=== PATIENT | male | born 1955 | race Two or more races ===

== ENCOUNTER 2024-12-11 06:37 | Day surgery (SDC) | payer OTHER ==
[~2024-12-11] VITALS: Ht 180.3 cm; Wt 99.1 kg
[~2024-12-11 06:37] MED LIST: SODIUM CHLORIDE 0.9% 1,000 ML ONE
[2024-12-11] MEDS: SODIUM CHLORIDE 0.9% 1,000 ML IV ONE (07:49)
[2024-12-11] MEDS ORDERED: PRED-729 PO (08:00)
[2024-12-11] MEDS ORDERED: MONT-40 PO (08:00)
[2024-12-11] MEDS ORDERED: LORA10TA7 PO (08:00)
[2024-12-11] MEDS ORDERED: SIMV-46 PO (08:00)
[2024-12-11] MEDS ORDERED: METF-1211 PO (08:00)
[2024-12-11] MEDS ORDERED: ASPI-1444 PO (08:00)
[2024-12-11] MEDS ORDERED: FAMO40TA7 PO (08:00)
[2024-12-11] MEDS ORDERED: LISI2.5T13 PO (08:00)
[2024-12-11] MEDS ORDERED: LEVO-72 PO (08:00)
[2024-12-11 08:11] LABS: GLUCOMETER DEV NAME(LOC) SDS.; GLUCOSE,POINT OF CARE 126 MG/DL (70-110)
[2024-12-11] MEDS ORDERED: FentaNYL CITRATE PF 100 MCG/2 ML VIAL ONE (08:20)
[2024-12-11] MEDS ORDERED: MIDAZOLAM HCL 2 MG/2 ML VIAL ONE (08:20)
[2024-12-11 09:28] VITALS: PULSE 56; RESP 20; O2SAT 99
[2024-12-11] MEDS ORDERED: MethylPREDNISolone SOD SUCC 125 MG/2 ML VIAL ONE (10:03)
[2024-12-11] MEDS: MethylPREDNISolone SOD SUCC 125 MG/2 ML VIAL IVP ONE (10:12)
[2024-12-11] MEDS ORDERED: LIDOCAINE 4% 50 ML SOLUTION ONE (12:00)
[2024-12-11] MEDS ORDERED: ALBUTEROL SULFATE 2.5 MG/0.5 ML NEB SOLUTION NEB ONE (12:00)
[2024-12-11] MEDS ORDERED: LIDOCAINE 2% 11 ML JELLY ONE (12:00)
[2024-12-11] MEDS ORDERED: BENZOCAINE 20% 50 MCG/SPRAY 57 GM ONE (12:00)
== END 2024-12-11 12:50 | disposition home or self-care (01) ==
LOC: SURGERY 06:37
PROVIDERS: ATTEND Internal Medicine Critical Care Medicine
DX: J38.4 Edema of larynx (principal); B37.0 Candidal stomatitis; I10 Essential (primary) hypertension; Z98.890 Other specified postprocedural states; E11.9 Type 2 diabetes mellitus without complications; Z79.82 Long term (current) use of aspirin; Z79.899 Other long term (current) drug therapy
CPT/HCPCS: 31623; 82962; 87206; 87101; 87220; 87070; 88108; 31624; 94640; 71045; 87015; 93005; J3010; J2250; J2919; J7030; J7613; Z7610